=== PATIENT | female | born 1965 | race Caucasian/White ===

== ENCOUNTER → 2017-08-01 | Outpatient (CLI) | payer OTHER ==
[~2017-08-01] VITALS: Ht 154.9 cm; Wt 113.4 kg
[~2017-08-01] MED LIST: CENTRUM SILVER1 EAC4 PO; CLOBETASOL PROP15 GM TOP; IRON325 PO; LIORESAL 10 MG10 MG PO; METFORMIN HCL500 MG PO; OMEPRAZOLE40 MG PO; PROZAC20 MG PO; SYNTHROID75 MCG PO; TRAZODONE 150150 M1 PO
--- NOTE | ~2017-08-01 | HPC ---
[facility] [place] [address] PAIN MANAGEMENT CONSULTATION Name: CYNTHIA RUSH Room #: REG [facility]..#: [id number] Admission: 08/01/17 Attend Phys: Diamond Frank MD Discharge: Date of : 67 Report #: [id number] THIS REPORT FOR: //name// CC: Diamond Miramontes MD DATE OF SERVICE: 08/01/2017 HISTORY OF PRESENT ILLNESS: The patient is a 51-year-old female who has been referred to the pain clinic for evaluation of back pain as well as some left leg pain. She has been having discomfort since about 08/2016. She describes it as sharp and stabbing pain, which radiates down the lower portion of her back as well as into the tailbone area. She notes that standing and activities of daily living can be problematic. Denies any bowel or bladder dysfunction. Notes that her pain improves when she sits for a few minutes. She describes it as constant, shooting, aching, sharp and rates it as a 7/10, can be 9 on most days. She denies any back surgery. Has not had physical therapy. She has tried nonsteroidal anti-inflammatory medications, has used baclofen and Flexeril. ALLERGIES: SULFA. CURRENT MEDICATIONS: Multivitamin, Centrum, iron 325, Trazodone 150 mg at bedtime, baclofen 10 mg at bedtime, Glucophage 500 mg b.i.d., Synthroid 75 mcg, omeprazole 40 mg before meals, Prozac 20 mg, topical cream clobetasol to affected area. PAST MEDICAL HISTORY: Essential hypertension, anxiety disorder, gastroesophageal reflux with esophagitis, metabolic syndrome, asthma, myalgias, cough, questionable sleep apnea, and cancer for hysterectomy. PAST SURGICAL HISTORY: x 2, rhinoplasty, left ankle surgery, appendectomy, cholecystectomy, hysterectomy, and bladder lift. REVIEW OF SYSTEMS: Questionnaire in the chart indicate generally good care, good health, some recent weight changes, fever, night sweats, fatigue, headaches, contact lenses, blurred vision, ringing in the ears, shortness of breath, cough, asthma, lightheadedness, depression, insomnia. Pain impact score is 53/70 involving general activity, mood, walking ability, work, relationships with others, sleep, and enjoyment of life. LABORATORY DATA: No laboratory is available at the time of our interview. PAIN ASSESSMENT: 1. History of osteoarthritis. 2. [place] [address] PAIN MANAGEMENT CONSULTATION Name: TONA CORNELIUSCYNTHIA LOYA Room #: REG [facility]#: [id number] Admission: 08/01/17 Attend Phys: Diamond Frank MD Discharge: Date of : 67 Report #: [id number] 3. Height 157 cm, weight 113 kilograms. BMI is 47. 4. Vital signs: Blood pressure 167/88, pulse 88, respiratory rate 20, room air saturation 97%. 5. Pain intensity score is 7/10. 6. Fall Risk: The patient does not need assistance with walking, has not fallen in the last 3 months. 7. The patient is not on blood thinners. 8. History of hypertension. The patient is being treated for hypertension, opioid. 9. Opioid therapy greater than 6 weeks. The patient is not on opioid therapy. 10. Functional assess too low. 11. The patient is a former smoker, has smoked 2 packs a day, infrequent use of alcohol. PHYSICAL EXAMINATION: GENERAL: The patient is a well-developed, somewhat obese female. Appears stated age, oriented and alert x 3. Affect is appropriate. HEENT/NECK: Unremarkable. Neck is unremarkable. Atraumatic. Extraocular eye muscles intact. Nasal without complaints. Does have some ringing complaints in the years. LUNGS: Clear to auscultation. HEART: Regular rate. ABDOMEN: Nontender. MUSCULOSKELETAL: Alignment appears within normal limits. No scoliosis, kyphosis or lordosis. Walks with a slight antalgic gait. The patient with forward flexion to about 45 degrees cause some discomfort in the low back area. Lumbar extension is limited. Left and right lateral rotation and left and right lateral bending cause some increased discomfort in the low back area as well. Upper extremities are judged to be within normal limits for touch, pinprick and cold. Muscle strength 5/5. Deep tendon reflexes are +1 for the biceps and difficult to assess for the triceps and brachioradialis. Lumbar palpation in the L5-S1 area near the posterior superior iliac spine bilaterally cause pain and discomfort. Repeating the pain similar to which the patient is complaining of. Deep tendon reflexes are +2 at the knees, trace at the ankles. Muscle strength is judged to be 5/5 in the major muscle groups of the lower extremities. No significant changes in sensation is noted in this area. IMPRESSION: 1. Myofascial pain in the low back area and the area of the posterior superior iliac spine. 2. History of hypertension. 3. Anxiety disorder. 4. Gastroesophageal reflux. 5. Metabolic syndrome. 6. Asthma. 7. Myalgia. [facility] [address] [place] [address] PAIN MANAGEMENT CONSULTATION Name: CYNTHIA RUSH Room #: [facility] [id number] Admission: 08/01/17 Attend Phys: Diamond Frank MD Discharge: Date of : 67 Report #: [id number] 8. Possible sleep apnea. RECOMMENDATIONS: We discussed treatment options with the patient. Risks and benefits of an epidural steroid injection were discussed. The palpation in the posterior and superior iliac spine area near the gluteus evelyn and gluteus minimus was noted. After palpation and reproduction of the patient's pain, a 25-gauge needle was then injected into the area near the gluteus evelyn and posterior superior iliac spine. This reproduced the patient's pain. A total of 40 mg triamcinolone with 10 mL of 0.5% bupivacaine was injected. The patient's pain decreased to 0. She remained in the pain clinic for an appropriate amount of time and discussion about physical therapy has been described. The patient will undergo a left hip and x-ray to look for pathology. She will follow up in the near future. We would like to thank you for letting us participate in her care. We hope she continues to improve. <ELECTRONICALLY SIGNED> By: Diamond Frank MD 09/19/17 [id number] Diamond Frank MD /nt
[2017-08-01 10:03] VITALS: BP 167/88
== END | disposition home or self-care (01) ==
LOC: PAIN 06:56
DX: M79.1 Myalgia (principal); I10 Essential (primary) hypertension; E11.9 Type 2 diabetes mellitus without complications; J45.909 Unspecified asthma, uncomplicated; E03.9 Hypothyroidism, unspecified; G47.33 Obstructive sleep apnea (adult) (pediatric); F41.8 Other specified anxiety disorders; K21.0 Gastro-esophageal reflux disease with esophagitis; E88.81 Metabolic syndrome and other insulin resistance; M19.90 Unspecified osteoarthritis, unspecified site; M06.9 Rheumatoid arthritis, unspecified; Z79.891 Long term (current) use of opiate analgesic; Z87.891 Personal history of nicotine dependence; Z90.710 Acquired absence of both cervix and uterus; Z88.2 Allergy status to sulfonamides; Z98.890 Other specified postprocedural states; Z79.899 Other long term (current) drug therapy; Z85.41 Personal history of malignant neoplasm of cervix uteri